=== PATIENT | female | born 1960 | race Caucasian/White ===

== ENCOUNTER 2021-03-08 20:07 | Inpatient (IN) | payer BC, OTHER ==
[~2021-03-08] VITALS: Ht 165.1 cm; Wt 75.5 kg
[2021-03-08 20:35] VITALS: BP 146/75
--- NOTE | 2021-03-08 21:08 | NUR ---
ADMISSION NOTES RECEIVED PT VIA [facility] @2024. VS STABLE. AOx3-4. ON NC 3-4L/MIN AND TOLERATING WELL. NO SOB NOTED. SAFETY PRECAUTIONS IN PLACE: BED IN LOWEST, LOCKED POSITION, SIDERAILS UPx2, AND BRAKES ON. WILL CONTINUE TO MONITOR. CONTACTED HANNAH FOR ORDERS. AWAITING MD ORDERS.
[2021-03-08] MEDS ORDERED: ACETAMINOPHEN 325 MG TABLET PO PRN (21:30)
[2021-03-08] MEDS ORDERED: ONDANSETRON HCL/PF 4 MG/2 ML VIAL IVP PRN (21:30)
[2021-03-08] MEDS ORDERED: HEPARIN INFUSION/D5W 500 ML IV PRN ×2 (21:30→22:30)
--- NOTE | 2021-03-08 22:03 | NUR ---
ADMISSION NOTE RECEIVED PT VIA [facility] @2024. VS STABLE. AOx3-4. ON NC 3-4L/MIN AND TOLERATING WELL. NO SOB NOTED. TELE MONITOR DETECTS SR WITH RATE OF 61. IV ACCESS IN LAC #20 RUNNING HEPARIN @1100 UNITS/HR. NO S/SX OF BLEEDING. SAFETY PRECAUTIONS IN PLACE: BED IN LOWEST, LOCKED POSITION, SIDERAILS UPx2, AND BRAKES ON. WILL CONTINUE TO MONITOR.
[2021-03-08] MEDS ORDERED: CLOPIDOGREL BISULFATE 75 MG TABLET PO ONE (22:30)
[2021-03-08] MEDS: MORPHINE SULFATE INJ 2 MG/ML DISP.SYRIN IV PRN (22:38)
--- NOTE | 2021-03-08 22:38 | NUR ---
ADMINISTERED MORPHINE PER MD ORDER. VS WNL. WILL CONTINUE TO MONITOR.
[2021-03-09] VITALS: BP 119/47
--- NOTE | 2021-03-09 00:48 | NUR ---
, WAYNE, WANTS TO BE CONTACTED PRIOR TO ANY MEDICAL DECISIONS BEING MADE.
[2021-03-09 04:00] VITALS: BP 122/75
[2021-03-09] MEDS: MORPHINE SULFATE INJ 2 MG/ML DISP.SYRIN IV PRN ×5 (04:05→20:26)
--- NOTE | 2021-03-09 04:05 | NUR ---
ADMINISTERED MORPHINE PER MD ORDER. VS WNL. WILL CONTINUE TO MONITOR.
--- NOTE | 2021-03-09 06:51 | NUR ---
RN CLOSING NOTES PT IN BED, AWAKENS TO VERBAL STIMULI. AOx3-4. ON NC 3L/MIN AND TOLERATING WELL. NO SOB NOTED. TELE MONITOR DETECTS SR WITH RATE OF 61. IV ACCESS IN LAC #20 RUNNING HEPARIN @1100 UNITS/HR. NO S/SX OF BLEEDING. ALL NEEDS MET. PT KEPT CLEAN AND DRY. PT KEPT NPO POST MN. SAFETY PRECAUTIONS IN PLACE: BED IN LOWEST, LOCKED POSITION, SIDERAILS UPx2, AND BRAKES ON. WILL ENDORSE TO ONCOMING SHIFT FOR BYRON.
[2021-03-09 07:16] LABS: CALCIUM, SERUM 8.8 mg/dL (8.5-10.1); CREATININE 0.9 mg/dL (0.6-1.3); MAGNESIUM 2.1 mg/dL (1.8-2.4); PHOSPHORUS 4.5 mg/dL (2.5-4.9); POTASSIUM 3.3 mmol/L (3.5-5.1)
--- NOTE | 2021-03-09 07:20 | NUR ---
LIBRARY SALES CONSULTANT OPENING NOTES RECEIVED PATIENT IN BED, AWAKE, A/O X4. EQUAL CHEST EXPANSION DURING RESPIRATIONS ON 3L/MIN VIA NC WITH NO SOB NOTED. NO COMPLAINT OF PAIN VERBALIZED AT THIS TIME. TELE MONITOR SHOWS SR 65 BPM AT THIS TIME. IV ACCESS IN L AC #20 RUNNING HEPARIN @1100 UNITS/HR. NO S/SX OF BLEEDING. PATIENT WAS EDUCATED ON CARDIAC CATHETERIZATION PROCEDURE THAT IS TO OCCUR IN THE AFTERNOON. PATIENT REMAINS NPO FOR PROCEDURE. SAFETY PRECAUTIONS IN PLACE: BED WHEELS LOCKED AND IN LOWEST POSITION, SIDE RAILS UP X2, AND CALL LIGHT WITHIN REACH. WILL CONTINUE TO MONITOR PATIENT.
[2021-03-09 07:43] LABS: BASOPHILS % (AUTO) 0.5 % (0.0-2.0); EOSINOPHILS % (AUTO) 2.8 % (0.0-6.0); HEMATOCRIT 41 % (33-45); HEMOGLOBIN 14.5 g/dL (11.5-14.8); LYMPHOCYTES # (AUTO) 2.8 K/uL (0.8-4.8); LYMPHOCYTES % (AUTO) 33.5 % (20.0-44.0); MEAN CORPUSCULAR HGB CONC 35 g/dl (31.0-36.0); MEAN CORPUSCULAR VOLUME 93 fL (82-100); MONOCYTES # (AUTO) 0.7 K/uL (0.1-1.30); MONOCYTES % (AUTO) 8.2 % (2.0-12.0); NEUTROPHILS # (AUTO) 4.7 K/uL (1.8-8.9); PLATELET COUNT (AUTO) 422 K/uL (150-450); WHITE BLOOD COUNT (AUTO) 8.5 K/uL (4.3-11.0)
[2021-03-09 08:00] VITALS: BP 105/56
[2021-03-09] MEDS: CLOPIDOGREL BISULFATE 75 MG TABLET PO SCH (08:10)
--- NOTE | 2021-03-09 08:10 | NUR ---
SCREW MACHINE SET UP OPERATOR TOOL NOTES PLAVIX HELD, PT SCHEDULED FOR CARDIAC CATH TODAY.
--- NOTE | 2021-03-09 08:45 | NUR ---
UX RESEARCHER NOTES RECEIVED PTT RESULT, 65.6, NO CHANGE IN CURRENT HEPARIN DRIP RATE OF 1100 U/HR, NEXT PTT TOMORROW AM.
[2021-03-09] MEDS ORDERED: ATOR10TA PO (09:33)
[2021-03-09] MEDS ORDERED: APIX5TAB PO (09:33)
[2021-03-09] MEDS ORDERED: SERT100T PO (09:33)
[2021-03-09] MEDS ORDERED: ASPI-1169 PO (09:33)
[2021-03-09] MEDS ORDERED: GABA600T12 PO (09:33)
[2021-03-09] MEDS ORDERED: OXYC-128 PO (09:33)
[2021-03-09] MEDS ORDERED: BUPR150F3 SL (09:33)
[2021-03-09] MEDS ORDERED: POTASSIUM CHLORIDE 20 MEQ TAB.PRT.SR PO SCH (10:00)
--- NOTE | 2021-03-09 10:00 | NUR ---
RN NOTES 1000 POTASSIUM MED HELD. NPO STATUS PENDING CARDIAC CATHETERIZATION TODAY.
[2021-03-09 11:11] LABS: THYROID STIMULATING HORMONE 0.99 uIU/mL (0.358-3.74)
[2021-03-09 12:00] VITALS: BP 109/45
[2021-03-09 12:53] LABS: MAGNESIUM 2.1 mg/dL (1.8-2.4)
[2021-03-09] MEDS ORDERED: IV NS 0.9% 1,000 ML ONE (13:43)
[2021-03-09] MEDS ORDERED: VERAPAMIL HCL IV 5 MG/2 ML VIAL ONE (13:43)
[2021-03-09] MEDS ORDERED: IV SET PRIMARY PUMP SET 1 EA INFUS.SET MC ONE (13:43)
[2021-03-09] MEDS ORDERED: IODIXANOL 150 ML IV ONE (13:43)
[2021-03-09] MEDS ORDERED: IV NS 0.9% 50 ML IV ONE (13:43)
[2021-03-09] MEDS ORDERED: LIDOCAINE HCL/MPF 1% 30 ML VIAL IJ ONE (13:44)
[2021-03-09] MEDS ORDERED: NITROGLYCERIN IN 5 % DEXTROSE 250 ML IV ONE (13:44)
--- NOTE | 2021-03-09 13:47 | NUR ---
HOME WORKER NOTES PATIENT TRANSFERRED TO [facility] ARCHITECT FOR CARDIAC CATHETERIZATION @ 1345, ACCOMPANIED BY 3 TECHS.
[2021-03-09] MEDS ORDERED: FENTANYL PF 100MCG/2ML AMPUL ONE (13:58)
[2021-03-09] MEDS ORDERED: MIDAZOLAM HCL 2 MG/2ML VIAL ONE (13:58)
[2021-03-09] MEDS ORDERED: diphenhydrAMINE HCL 50 MG CAPSULE PO ONE (15:00)
[2021-03-09] MEDS ORDERED: NOREPINEPHRINE 8MG/250ML RTU 0 ML IV ONE (15:09)
--- NOTE | 2021-03-09 16:00 | NUR ---
DESK DIRECTOR NOTES PT BACK FROM CARDIAC CATH, CLARIFIED WITH DR. DUNCAN IF HEPARIN WILL BE RESUMED, ORDERED TO D/C HEPARIN DRIP.
[2021-03-09] MEDS ORDERED: APIXABAN 2.5 MG TABLET PO SCH (18:54)
--- NOTE | 2021-03-09 18:56 | NUR ---
CHIEF OF ANESTHESIOLOGY CLOSING NOTES PATIENT IN BED, RESTING, A/O X4. PATIENT DISPLAYS NO S/SX OF RESPIRATORY DISTRESS AT THIS TIME ON RA. NO COMPLAINT OF PAIN VERBALIZED. IV ACCESS IN L AC #20 INTACT AND PATENT. TR BAND CHECK Q15 MIN. AWAITING CONFIRMATION TO CONTINUE HOME MEDS. SAFETY PRECAUTIONS IN PLACE: BED WHEELS LOCKED AND IN LOWEST POSITION, SIDE RAILS UP X2, AND CALL LIGHT WITHIN REACH. WILL ENDORSE TO SUPPLY CHAIN MANAGER NURSE FOR BYRON.
--- NOTE | 2021-03-09 19:27 | NUR ---
FIRE CONTROL TECHNICIAN B OPENING NOTE PATIENT WAS RECEIVED AWAKE IN BED. A/OX4. NO S/S OF DISTRESS, BREATHING SYMMETRICAL RM AIR. TELE MONITOR SR 71. SAFETY MEASURES IN PLACE: BED AT LOWEST POSITION, RAILS UP X2, CALL TURNER WITHIN REACH. WILL CONTINUE TO MONITOR PATIENT.
[2021-03-09 20:28] LABS: ALBUMIN 3.6 g/dL (3.4-5.0); BILIRUBIN,DIRECT 0.2 mg/dL (0.0-0.2); BILIRUBIN,TOTAL 0.9 mg/dL (0.2-1.0); TOTAL PROTEIN, SERUM 7.1 g/dL (6.4-8.2)
[2021-03-09 20:42] VITALS: BP 98/57
--- NOTE | 2021-03-09 21:19 | NUR ---
GAMEPLAY ENGINEER NOTE MEDICATION GIVEN LATE: SPOKE W/ DR. LEWIS (FRONT DESK CLERK ON-CALL) RE RECENT ORDER FOR FRANCOISE. PATIENT CAME FROM CARDIAC CATH. WAS ON HEP DRIP, BUT IS CURRENTLY D/C'd. NO S/S OF ACTIVE BLEEDING. STATED IT WAS FINE TO PROCEED W/ ADMINISTERING MED TO PATIENT.
[2021-03-09] MEDS: APIXABAN 5 MG TABLET PO SCH (21:30)
[2021-03-09] MEDS: ATORVASTATIN 10 MG TABLET PO SCH (21:31)
[2021-03-09] MEDS ORDERED: ATORVASTATIN 10 MG TABLET PO SCH (22:00)
[2021-03-10 00:36] VITALS: BP 107/67
[2021-03-10] MEDS: MORPHINE SULFATE INJ 2 MG/ML DISP.SYRIN IV PRN ×6 (00:46→21:32)
[2021-03-10 04:38] VITALS: BP 103/63
[2021-03-10 06:34] LABS: BASOPHILS % (AUTO) 0.4 % (0.0-2.0); EOSINOPHILS % (AUTO) 2.1 % (0.0-6.0); HEMATOCRIT 39 % (33-45); HEMOGLOBIN 14.3 g/dL (11.5-14.8); LYMPHOCYTES # (AUTO) 2.7 K/uL (0.8-4.8); LYMPHOCYTES % (AUTO) 29.3 % (20.0-44.0); MEAN CORPUSCULAR HGB CONC 36 g/dl (31.0-36.0); MEAN CORPUSCULAR VOLUME 92 fL (82-100); MONOCYTES # (AUTO) 0.8 K/uL (0.1-1.30); MONOCYTES % (AUTO) 8.7 % (2.0-12.0); NEUTROPHILS # (AUTO) 5.6 K/uL (1.8-8.9); NEUTROPHILS % (AUTO) 59.5 % (43.0-81.0); PLATELET COUNT (AUTO) 395 K/uL (150-450); RED BLOOD CELL COUNT(AUTO) 4.28 MIL/uL (4.0-5.2); WHITE BLOOD COUNT (AUTO) 9.3 K/uL (4.3-11.0)
[2021-03-10 06:53] LABS: CALCIUM, SERUM 9.1 mg/dL (8.5-10.1); CREATININE 0.8 mg/dL (0.6-1.3); POTASSIUM 3.4 mmol/L (3.5-5.1)
--- NOTE | 2021-03-10 07:02 | NUR ---
TELE CLOSING NOTE PATIENT AWAKE IN BED. A/OX4. NO S/S OF DISTRESS, BREATHING SYMMETRICAL. SAFETY MEASURES IN PLACE: BED AT LOWEST LEVEL, RAILS UP X2, CALL TURNER WITHIN REACH. WILL ENDORSE TO NEXT SHIFT FOR BYRON.
--- NOTE | 2021-03-10 07:25 | NUR ---
MUSIC PROMOTER OPENING NOTES PATIENT IN BED WITH EYES CLOSED, ABLE TO BE WAKEN, A/O X4. PATIENT DISPLAYS NO S/SX OF RESPIRATORY DISTRESS AT THIS TIME ON RA. NO COMPLAINT OF PAIN VERBALIZED. IV ACCESS IN L AC #20 INTACT AND PATENT. TR BAND NO LONGER IN USE. TELE MONITOR SHOWS SR 65 BPM. NO S/SX OF BLEEDING NOTED AT THIS TIME. SAFETY PRECAUTIONS IN PLACE: BED WHEELS LOCKED AND IN LOWEST POSITION, SIDE RAILS UP X2, AND CALL LIGHT WITHIN REACH. WILL ENDORSE TO VIDEOTAPE EDITOR NURSE FOR BYRON.
[2021-03-10 08:00] VITALS: BP 103/64
[2021-03-10] MEDS: CLOPIDOGREL BISULFATE 75 MG TABLET PO SCH (09:31)
[2021-03-10] MEDS: APIXABAN 5 MG TABLET PO SCH ×2 (09:32→17:11)
[2021-03-10] MEDS: SERTRALINE HCL 50 MG TABLET PO SCH (09:33)
[2021-03-10] MEDS: GABAPENTIN 300 MG CAPSULE PO SCH ×3 (09:33→17:12)
[2021-03-10] MEDS ORDERED: POTASSIUM CHLORIDE 20 MEQ TAB.PRT.SR PO SCH (10:30)
[2021-03-10 12:00] VITALS: BP 106/57
[2021-03-10 16:00] VITALS: BP 96/56
[2021-03-10] MEDS: METOPROLOL TARTRATE 25 MG TABLET PO SCH ×2 (19:00→21:00)
--- NOTE | 2021-03-10 19:34 | NUR ---
DIRECTOR AGRICULTURAL SERVICES CLOSING NOTES PATIENT IN BED AWAKE, A/O X4. PATIENT DISPLAYS NO S/SX OF RESPIRATORY DISTRESS AT THIS TIME ON RA. NO COMPLAINT OF PAIN VERBALIZED. PAIN IS BEING MANAGED WITH MORPHINE 2MG Q4HR PRN. IV ACCESS IN L AC #20 INTACT AND PATENT. TELE MONITOR SHOWS SR 62 BPM. SAFETY PRECAUTIONS IN PLACE: BED WHEELS LOCKED AND IN LOWEST POSITION, SIDE RAILS UP X2, AND CALL LIGHT WITHIN REACH. WILL ENDORSE TO SUPPLY CHAIN CONSULTANT NURSE FOR BYRON.
--- NOTE | 2021-03-10 19:47 | NUR ---
BARGE LOADER OPENING NOTE PATIENT RECEIVED ASLEEP IN BED. A/OX4. NO S/S OF DISTRESS, BREATHING SYMMETRICAL. TELE MONITOR SR 74. SAFETY MEASURES IN PLACE: BED AT LOWEST POSITION, RAILS UP X2, CALL TURNER WITHIN REACH. WILL CONTINUE TO MONITOR PATIENT.
[2021-03-10] MEDS: ATORVASTATIN 10 MG TABLET PO SCH (21:32)
[2021-03-11] MEDS: MORPHINE SULFATE INJ 2 MG/ML DISP.SYRIN IV PRN ×2 (03:53→09:18)
[2021-03-11 07:00] LABS: CREATININE 0.8 mg/dL (0.6-1.3); POTASSIUM 3.7 mmol/L (3.5-5.1)
--- NOTE | 2021-03-11 07:30 | NUR ---
DENTAL TECHNICIAN METAL OPENING NOTE PATIENT IN BED WITH EYES CLOSED. A/O X3-4. NO S/S OF APPARENT DISTRESS. NO SOB. BREATHING IS EVEN AND UNLABORED. NO C/O PAIN AT THIS TIME. EXTERNAL PERSONAL LINES ADVISOR WITH READING SB 58 AT THIS TIME. SAFETY MEASURES KEPT IN PLACE WITH BED LOCKED AND LOW POSITION WITH SIDE RAILS UP X 2. WILL MONITOR PT FOR CHANGES IN CONDITION THROUGHOUT SHIFT.
--- NOTE | 2021-03-11 07:43 | NUR ---
CLOSING NOTE PATIENT ASLEEP IN BED. A/OX3-4. NO S/S OF DISTRESS, BREATHING SYMMETRICAL. TELE MONITOR REPORTS SB 58. IV LAC #20 SL INTACT & PATENT. SAFETY MEASURES IN PLACE: BED DOWN AT LOWEST POSITION, RAILS UP X2, CALL TURNER WITHIN REACH. WILL ENDORSE TO NEXT SHIFT FOR BYRON.
[2021-03-11 08:00] VITALS: BP 100/62
[2021-03-11] MEDS ORDERED: CLOP75TA15 PO (08:30)
[2021-03-11] MEDS ORDERED: METO25TA20 PO (08:30)
[2021-03-11 09:00] VITALS: BP 100/62
[2021-03-11] MEDS: METOPROLOL TARTRATE 25 MG TABLET PO SCH (09:00)
[2021-03-11] MEDS: SERTRALINE HCL 50 MG TABLET PO SCH (09:13)
[2021-03-11] MEDS: APIXABAN 5 MG TABLET PO SCH (09:14)
[2021-03-11] MEDS: CLOPIDOGREL BISULFATE 75 MG TABLET PO SCH (09:17)
[2021-03-11] MEDS: GABAPENTIN 300 MG CAPSULE PO SCH (09:17)
--- NOTE | 2021-03-11 12:50 | NUR ---
MOLDING UTILITY WORKER NOTE PT WAS DISCHARGED WITH STABLE VITALS. NO S/SX OF DISTRESS NOTED. NO SOB. BREATHING EVEN AND UNLABORED. IV ACCESS REMOVED. ID BAND REMOVED. DISCHARGE INSTRUCTIONS REVIEWED WITH PATIENT AND AT BEDSIDE; ALL QUESTIONS ANSWERED, VERBALIZED UNDERSTANDING. I ACCOMPANIED PT OUT THE UNIT VIA WHEELCHAIR. ALL BELONGINGS ACCOUNTED FOR AND SIGNED FORM. I OBSERVED PT GET INTO PRIVATE CAR IN PASSENGER SEAT ACCOMPANIED BY WHO DROVE.
== END 2021-03-11 12:00 | disposition home or self-care (01) | DRG 281 ==
LOC: TELE 20:07
PROVIDERS: ADMIT Nurse Practitioner Acute Care; ATTEND Internal Medicine
PROC: 4A023N7 Measurement of Cardiac Sampling and Pressure, Left Heart, Percutaneous Approach (ICD-10-PCS; principal; 2021-03-09)
PROC: B211YZZ Fluoroscopy of Multiple Coronary Arteries using Other Contrast (ICD-10-PCS; 2021-03-09)
DX: I21.4 Non-ST elevation (NSTEMI) myocardial infarction (principal); D68.69 Other thrombophilia; I82.413 Acute embolism and thrombosis of femoral vein, bilateral; I69.351 Hemiplegia and hemiparesis following cerebral infarction affecting right dominant side; I25.2 Old myocardial infarction; Z86.711 Personal history of pulmonary embolism; Z79.899 Other long term (current) drug therapy; E87.6 Hypokalemia; Z86.718 Personal history of other venous thrombosis and embolism; Z79.02 Long term (current) use of antithrombotics/antiplatelets
CPT/HCPCS: 36415; 80048-TC; 80076-TC; 83735-TC; 84100-TC; 84439-TC; 84443-TC; 85025-TC; 85610-TC; 85730-TC; 87081-TC; C1887; G0378; G0500; J1644; J2250; J2270; J2405; J3010; J3490; J7030; Q9967